=== PATIENT | female | born 1975 | race Caucasian/White ===

== ENCOUNTER 2024-07-26 09:40 | Emergency (ER) | payer BC, SELFPAY ==
--- NOTE | ~2024-07-26 | XR_ITS ---
EXAMINATION: XR chest 2V DATE: 07/26/2024 10:34 INDICATION: COPD presenting with cough, wheezing and dyspnea TECHNIQUE: PA and lateral views of the chest were obtained. COMPARISON: None FINDINGS: The lungs are clear with no focal airspace opacities, pulmonary edema, pleural effusion or pneumothor ax. The cardiomediastinal silhouette is normal. Visualized bones and soft tissues are unremarkable. IMPRESSION: 1. No acute cardiopulmonary disease. Reviewed, dictated and finalized at location A.
[2024-07-26 09:49] VITALS: BP 181/110; PULSE 107; RESP 16; TEMP 36.5; O2SAT 96
--- NOTE | 2024-07-26 10:01 | ECG_ITS ---
Test Date: 2024-07-26 10:07:01 Measurements Intervals [place] Rate: 94 P: 53 [place]: 173 QRS: 18 QRSD: 78 T: 42 QT: 336 QTc: 422 Interpretive Statements SINUS RHYTHM CONSIDER RIGHT VENTRICULAR CONDUCTION DELAY BORDERLINE ECG No previous ECG available for comparison Electronically Signed On 07-26-2024 10:41:41 CDT by Jagdish Damico D.O.
--- NOTE | 2024-07-26 10:02 | ED_ITS ---
HPI - SOB/Dyspnea General Chief Complaint: Shortness of Breath/Dyspnea Stated Complaint: Wheezing, Difficulty Breathing Time Seen by Provider: 07/26/24 09:50 Source: patient and RN notes reviewed Mode of arrival: ambulatory Limitations: no limitations History of Present Illness HPI Narrative: 49-year-old female presents [facility] complaining of wheezing and shortness of breath for 1 week. Patient is former smoker and has history of COPD. Patient states she has ran out of her Breztri inhaler and she canceled her doctor's appointment and cannot get until August 06. Patient has been using her albuterol inhaler with minimal relief. Patient denies any chest pain, jaw pain, nausea, vomiting, left arm pain, leg swelling, dizziness, lightheadedness, palpitation, cough, fevers, body aches, chills or any upper respiratory symptoms. Patient has a history of hypertension her blood pressure is elevated today but she said she took her losartan approximately 1 hour ago prior to arrival. Patient denies a worsening cough or increased purulence. Related Data Home Medications ?Medication ?Instructions ?Recorded ?Confirmed ?Last Taken ?Type albuterol sulfate 90 mcg/actuation inhalation 07/26/24 Unknown History aerosol inhaler budesonide 160 mcg-glycopyr 9 inh inhalation 07/26/24 Unknown History mcg-formot 4.8 mcg/actuation HFA inhaler (Breztri Aerosphere) losartan 100 mg tablet mg 07/26/24 Unknown History Allergies Allergy/AdvReac Type Severity Reaction Status Date / Time Penicillins Allergy Unknown Rash Verified 07/26/24 09:59 Review of Systems Review of Systems: CONSTITUTIONAL: Denies fever, body aches, chills, or sweats. EYES: Denies visual changes, redness, or discharge. ENT: Denies rhinorrhea, congestion, sore throat, or otalgia. CARDIOVASCULAR: Denies chest pain, dizziness, lightheadedness, syncope, palpitations, or edema. RESPIRATORY: Positive for cough, dyspnea, orthopnea, wheezing. GASTROINTESTINAL: Denies abdominal pain, nausea, vomiting, or diarrhea. GENITOURINARY: Denies dysuria or hematuria. SKIN: Denies rash or itching. MUSCULOSKELETAL: Denies back pain, joint pain, or myalgia. NEUROLOGIC: Denies headache, numbness, or weakness. PSYCHIATRIC: Denies anxiety or depression. All other systems reviewed are negative, except as documented in HPI. PMFSH Comments At the time of my signature, I reviewed and agree with the nursing past medical, surgical, social, and family history. There is no relevant family history pertinent to the patient complaint. Exam Narrative: GENERAL: This is a well-nourished, well-developed adult, in no apparent distress. They are non ill-appearing, nontoxic appearing. HEAD: normocephalic, atraumatic. EYES: Sclera clear/white. Conjunctiva normal. Vision is grossly intact. Extraocular movements intact EARS: External ears normal, auditory canals clear and without drainage, TMs normal without perforation. Hearing grossly intact. NOSE: External nose normal with no obvious nasal discharge, nasal turbinates without redness, no rhinorrhea. THROAT: Mucous membranes moist, posterior pharynx clear, without erythema or swelling. Uvula midline. NECK: Neck supple, non-tender without lymphadenopathy, masses or thyromegaly. CARDIOVASCULAR: Tachycardic rate and rhythm without murmurs, clicks, gallops, or rubs. Normal S1-S2. RESPIRATORY: Inspiratory wheezes throughout. Breath sounds equal bilaterally. No rales or rhonchi. Respiratory rate normal, respiratory effort nonlabored, no respiratory distress. Patient is able to speak in full sentences. GASTROINTESTINAL: Abdomen soft, non-tender, nondistended. Bowel sounds are active. No hepato-splenomegaly, or palpable masses. No guarding. SKIN: warm, Dry, intact with no suspicious lesions or rash, good texture and turgor. NEURO: awake, alert, and oriented to person, place and time. There were no obvious focal neurologic abnormalities. EXTREMITIES: No joint tenderness, effusion, or edema noted. BACK: Nontender without deformity. No CVA tenderness. Course Course Emergency Course: Patient given duo nebulizer for wheezing, repeat auscultation showed improved aeration, no wheezing auscultated, rhonchi present. She reports feeling a lot better and no longer feels short of breath. Level of Care: Express Care Visit Vital Signs Vital signs: Vital Signs Temperature 97.7 F 07/26/24 09:49 Pulse Rate 107 H 07/26/24 09:49 Respiratory Rate 16 07/26/24 09:49 Blood Pressure 181/110 H 07/26/24 09:49 Pulse Oximetry 96 07/26/24 09:49 Oxygen Delivery Room Air 06/20/25 09:49 Temperature 97.7 F 07/26/24 09:49 Pulse Rate 103 H 07/26/24 10:22 Respiratory Rate 20 07/26/24 10:22 Blood Pressure 161/99 H 07/26/24 10:22 Pulse Oximetry 94 07/26/24 10:22 Oxygen Delivery Room Air 07/26/24 10:22 Reviewed MDM - SOB/Dyspnea MDM Narrative Medical decision making narrative: EKG shows sinus rhythm without ischemic findings, nonspecific T-wave changes. Patient given a DuoNeb treatment here. Patient reports feeling feeling better and does not feel short of breath. Wheezing has resolved. Chest x-ray showed. Will refill Breztri inhaler. Likely COPD exacerbation. Prescribed short course of prednisone. Discussed physical exam findings. Advised supportive measures and signs/symptoms to go to the ER. Pt is appropriate for outpt treatment and f/u. Differential Diagnosis Differential diagnosis: Likely acute exacerbation of chronic obstructive airways disease, congestive heart failure and community acquired pneumonia ECG Data EKG #1: ECG completion date: 07/26/24 ECG completion time: 10:07 Prior ECG tracings: not available for review EKG Interpretation: normal rate, sinus rhythm, no ectopy, no ST changes and normal QRS Critical Care Time Critical Care Time Critical Care Time: No Discharge Plan Discharge Clinical Impression: Acute exacerbation of chronic obstructive airways disease Patient Disposition: Home Condition: Stable Instructions: COPD (Chronic Obstructive Pulmonary Disease) (ED) Additional Instructions: Your chest x-ray showed no evidence of pneumonia or acute findings. Your EKG is a sinus rhythm without any signs of a heart attack. Is likely had a COPD exacerbation. Your Breztri inhaler has been refilled, use as directed. Take the prednisone as directed, take in the morning take it with food. Follow-up with PCP in August as scheduled. He developed any fevers, worsening shortness of breath, chest pains, or any other concerns please go to the ER immediately. Patient Language: Dominican Prescriptions: New prednisone 20 mg tablet 40 mg PO DAILY 5 Days Qty: 10 0RF Breztri Aerosphere 160-9-4.8 mcg/actuation HFA aerosol inhaler 2 inh inhalation BID Qty: 5.9 0RF No Action albuterol sulfate 90 mcg/actuation HFA aerosol inhaler INHALATION losartan 100 mg tablet Breztri Aerosphere 160-9-4.8 mcg/actuation HFA aerosol inhaler INHALATION Follow-up/Referrals: Jay,Sean Lund MD [Primary Care Provider] - Time of Disposition: 10:55
[2024-07-26] MEDS: IPRATROPIUM 0.5 MG/ALBUTEROL SULFATE 2.5 MG AMPUL.NEB 3 ML INHALATION (10:09)
[2024-07-26 10:11] VITALS: PULSE 98; RESP 20; O2SAT 95
[2024-07-26 10:21] VITALS: PULSE 102; RESP 20; O2SAT 94
[2024-07-26 10:22] VITALS: BP 161/99; PULSE 103; RESP 20; O2SAT 94
== END 2024-07-26 11:05 | disposition home or self-care (01) ==
PROVIDERS: PCP Internal Medicine
DX: J44.1 Chronic obstructive pulmonary disease with (acute) exacerbation (principal); I10 Essential (primary) hypertension; Z79.899 Other long term (current) drug therapy
CPT/HCPCS: 71046; 93005; 99203; G0463